=== PATIENT | female | born 1970 | race Caucasian/White ===

== ENCOUNTER 2020-09-01 09:02 | Emergency (ER) | payer BC, OTHER ==
--- OUTSIDE RECORDS SUMMARY | 2020-09-01 09:26 | XMS REPORT ---
:1970 Author Organization [facility] Address [address] [place], [address]. [address] [place] [address] Care Team Providers Name Role Phone Salcedo Unavailable [phone] PROBLEMS Type Condition ICD9-CM [id number] Onset Condition SNOMED Code Notes Code Code Dates Status Problem MICAH (generalized F41.1 Active 40892356 anxiety disorder) Problem Mixed E78.2 Active 483390697 hyperlipidemia Problem Body mass index Z68.34 Active 793932343 [BMI] 34.0-34.9, adult Problem Hypothyroidism, E03.9 Active 633007676 acquired Problem Current moderate F32.1 Active 65833171 episode of major depressive disorder without prior episode Problem Other obesity due E66.09 Active 756840234 to excess calories ALLERGIES No Known Allergies ENCOUNTERS from 1970 to 2020-08-24 Encounter Location Date Provider Diagnosis [place] [address] Fel[place] Jul, Jimenez Salcedo Hypothyro idism, [address], acquired E 03.9 ; [place] [address] hyperlipidemia E78.2 ; MICAH (generalize d anxiety disorde r) F41.1 ; Elevated bloo d pressure readin g without diagnos is of hypertension R0 3.0 ; Other obesity d ue to excess calories E66.09 ; Body mass ind ex [BMI] 34.0-34.9, adul t Z68.34 and Change in b owel habits R19.4 IMMUNIZATIONS Vaccine Route Administration Date Status Afluria single dose Unknown Apr 29, 2020 Administered Adacel (Tdap) Unknown Apr 01, 2019 Administered SOCIAL HISTORY Tobacco Use: Social History Observation Description Date Details (start date - stop date) Never Smoker Sex Assigned At : Social History Observation Description Sex Assigned At Unknown Alcohol Screen Question Answer Notes Did you have a drink containing alcohol in Yes the past year? Points 4 Interpretation Positive How often did you have a drink containing Four or more times a week (4 points) alcohol in the past year? Tobacco Use/Smoking Question Answer Notes Are you a never smoker REASON FOR REFERRAL No Information VITAL SIGNS Height 64.5 in Jul, Weight 205 lbs Jul, Temperature 98 degrees Fahrenheit Jul, BMI 34.64 kg/m2 Jul, Blood pressure systolic 135 mm Hg Jul, Blood pressure diastolic 75 mm Hg Jul, MEDICATIONS Medication SIG (Take, Route, Notes Start Date End Date Status Frequency, Duration) Duloxetine HCl 60 MG 1 capsule Orally Once a Active day for 90 days Levoxyl 125 MCG 1 tablet in the morning Active on an empty stomach Orally Once a day for 90 days Rosuvastatin Calcium 10 MG 1 tablet Orally Once a Active day for 90 days PROCEDURES No Information RESULTS No Results REASON FOR VISIT 3 mth lab f/u Goals Section No Information Health Concerns No Information MEDICAL EQUIPMENT No Information MENTAL STATUS No Information FUNCTIONAL STATUS No Information ASSESSMENTS Encounter Date Diagnosis Assessment Notes Treatment Notes Treatm ent Clinical Notes Jul, Hypothyroidism, REDUCED to 125 mcg. acquired (ICD-10 - Goal TSH 1-3. Side E03.9) effect panel discussed. Hypothyroidism Education: This a condition in which the thyroid gland does not produce enough thyroid hormone for the body. The hormones are important in regulating the body''s use of storing and controlling energy. Symptoms are widely varied and often mimick the body''s normal changes of life. Symptoms may include: fatigue, shortness of breath with exertion, dry skin, hair loss, constipation, depressed feeling, weight gain and temperature intolerance. A blood test is used to determine the thyroid levels. Treatment involves the use of medication in order to balance the TSH and T4 hormone levels. Treatment is indefinite and often lifelong. Your hormone levels will need to be checked periodically to insure that the levels are balanced. Compliance with medication is vital. Overtreated hormone levels can lead to complications. Contact your doctor if you have any abnormal symptoms. Jul, Mixed hyperlipidemia INCREASED 10 mg. (ICD-10 - E78.2) Side effect panel discussed. Hyperlipidemia Education: Hyperlipidemia refers to increased levels of lipids(fats) in the blood, including cholesterol and triglycerides. This can significantly increase your risk of developing coronary artery disease and peripheral artery disease. This can cause chest pain, heart attack, stroke, and fatigue. Treatment is recommended to decrease your risk. Treatment includes: lifestyle modification, low salt/low fat diet, exercise, tobacco cessation, low alcohol intake and sometimes medication. Blood tests (TC,TG, HDL, LDL) are utilized to determine treatment regimens. TC(Total cholesterol) should be below 200. TG(Total Triglycerides) should be below 150. HDL(Good cholesterol) should be above 40. LDL(Bad Cholesterol) should be below 130(if you have one risk factor) or less than 100( if you have more than one risk factor or have DM/CAD/PVD). Compliance with medication and treatment is vital. If you have questions, talk to your doctor. Jul, MICAH (generalized .Refill given. Side anxiety disorder) effect panel (ICD-10 - F41.1) discussed. Education given. , -- Anxiety Education: Anxiety is a feeling of anxiousness or nervousness. Being extremely anxious or worried on most days for 6 months or longer is not normal. This is a type of anxiety disorder. This disorder can make it hard to do everyday tasks. Other types of anxiety include: post traumatic stress disorder, panic disorder, and phobias. Symptoms of anxiety may include: feeling worried or on the edge, trouble sleeping, or forgetting things. Feelings of stomach aches or chest tightness is another common symptom. Medicine, exercise, and other treatments like counseling, talk therapy, yoga, and massages maybe necessary to treat this disorder. Jul, Elevated blood DASH Diet discussed. pressure reading Instructed to without diagnosis of measure BP at home hypertension (ICD-10 and bring in log to - R03.0) f/u appt. Instructions and logs given. Education given. Jul, Other obesity due to excess calories (ICD-10 - E66.09) Jul, Body mass index Actively listened. [BMI] 34.0-34.9, Support given. adult (ICD-10 - Counseling given. Z68.34) Education given. Utilized the 5-A''s approach to increase patient motivation and behavioral change. ASK: Patient expressed desire/readiness to change and permission was obtained to discuss. ASSESS: BMI class discussed. In addition, patient''s barrier to weight loss and identified drivers and complications. ADVISE: Discussed benefits of modest weight loss and long-term strategy as well. Educated on risks and complications of obesity on health. Treatment options were discussed including but not limited to non-surgical (medications, gym, diet/exercise) and surgical options. AGREE: Realistic weight-loss goal discussed. Behavioral goals done. Patient agreed with treatment plan. ASSIST: Provided education and resources. Plan made to address drivers and barriers. Close follow-up arranged. START: Walking daily, reducing soda and increased hydration with water of at least 64 ounces. Weight has been followed. At least 15 minutes were spent counseling. Jul, Change in bowel ., Intermittent habits (ICD-10 - watery and loose. R19.4) No etiology identified. Encouraged to make dietary changes. Take bulking agents. Jul, Other -- Medication reviewed and updated. -- Dietary and Lifestyle modifications addressed regarding diet, exercise and weight managemen t. -- Treatment options, risks and benefits, side effects reviewed in detail. -- Advised on signs/symptoms to monitor and when to call clinic and/or visit the nearest ER. Patient verbalized understanding and agreeable with plan. PLAN OF TREATMENT Medication Medication Name Sig Start Date Stop Date Duloxetine HCl 60 MG 1 capsule Orally Once a day for 90 days Rosuvastatin Calcium 10 MG 1 tablet Orally Once a day for 90 days Levoxyl 125 MCG 1 tablet in the morning on an empty stomach Orally Once a day for 90 days Treatment Notes Assessment Notes Clinical Notes Hypothyroidism, acquired REDUCED to 125 mcg. Goal TSH 1-3. Side effect panel discussed. Hypothyroidism Education: This a condition in which the thyroid gland does not produce enough thyroid hormone for the body. The hormones are important in regulating the body''s use of storing and controlling energy. Symptoms are widely varied and often mimick the body''s normal changes of life. Symptoms may include: fatigue, shortness of breath with exertion, dry skin, hair loss, constipation, depressed feeling, weight gain and temperature intolerance. A blood test is used to determine the thyroid levels. Treatment involves the use of medication in order to balance the TSH and T4 hormone levels. Treatment is indefinite and often lifelong. Your hormone levels will need to be checked periodically to insure that the levels are balanced. Compliance with medication is vital. Overtreated hormone levels can lead to complications. Contact your doctor if you have any abnormal symptoms. Mixed hyperlipidemia INCREASED 10 mg. Side effect panel discussed. Hyperlipidemia Education: Hyperlipidemia refers to increased levels of lipids(fats) in the blood, including cholesterol and triglycerides. This can significantly increase your risk of developing coronary artery disease and peripheral artery disease. This can cause chest pain, heart attack, stroke, and fatigue. Treatment is recommended to decrease your risk. Treatment includes: lifestyle modification, low salt/low fat diet, exercise, tobacco cessation, low alcohol intake and sometimes medication. Blood tests (TC,TG, HDL, LDL) are utilized to determine treatment regimens. TC(Total cholesterol) should be below 200. TG(Total Triglycerides) should be below 150. HDL(Good cholesterol) should be above 40. LDL(Bad Cholesterol) should be below 130(if you have one risk factor) or less than 100( if you have more than one risk factor or have DM/CAD/PVD). Compliance with medication and treatment is vital. If you have questions, talk to your doctor. MICAH (generalized anxiety disorder) .Refill given. Side effec t panel discussed. Education given. , -- Anxiety Education: Anxiety is a feeling of anxiousness or nervousness. Being extremely anxious or worried on most days for 6 months or longer is not normal. This is a type of anxiety disorder. This disorder can make it hard to do everyday tasks. Other types of anxiety include: post traumatic stress disorder, panic disorder, and phobias. Symptoms of anxiety may include: feeling worried or on the edge, trouble sleeping, or forgetting things. Feelings of stomach aches or chest tightness is another common symptom. Medicine, exercise, and other treatments like counseling, talk therapy, yoga, and massages maybe necessary to treat this disorder. Elevated blood pressure reading DASH Diet discussed. Instruc laura to without diagnosis of hypertension measure BP at home and howard ng in log to f/u appt. Instructions and logs given. Education given. Body mass index [BMI] 34.0-34.9, Actively listened. Support given. adult Counseling given. Education given. Utilized the 5-A''s approach to increase patient motivation and behavioral change. ASK: Patient expressed desire/readiness to change and permission was obtained to discuss. ASSESS: BMI class discussed. In addition, patient''s barrier to weight loss and identified drivers and complications. ADVISE: Discussed benefits of modest weight loss and long-term strategy as well. Educated on risks and complications of obesity on health. Treatment options were discussed including but not limited to non-surgical (medications, gym, diet/exercise) and surgical options. AGREE: Realistic weight-loss goal discussed. Behavioral goals done. Patient agreed with treatment plan. ASSIST: Provided education and resources. Plan made to address drivers and barriers. Close follow-up arranged. START: Walking daily, reducing soda and increased hydration with water of at least 64 ounces. Weight has been followed. At least 15 minutes were spent counseling. Change in bowel habits ., Intermittent watery and loose. No etiology identified. Encouraged to make dietary changes. Take bulking agents. Treatment Notes Test Name Order Date Lipid Panel With LDL/HDL Ratio 2020-08-24 Thyroid Panel With TSH 2020-08-24 Comp. Metabolic Panel (14) (CMP) 2020-08-24 Next Appt Details 3 Months TV + Labs 1 week Reason: Insurance Providers Payer Name Payer Payer Insured Name Patient Coverage Covera ge End Address Phone Relationship to Start Date Mendez e Insured [employer] [phone] Guallpa self 2020 and [place] [id number] [facility] [id number]
--- OUTSIDE RECORDS SUMMARY | 2020-09-01 09:26 | XMS REPORT | Continuity of Care Document ---
:[address] [facility] t Address [address] [place] [address] Care Team Providers Name Role Phone Unavailable Unavailable Unavailable Problems This patient has no known problems. Allergies, Adverse Reactions, Alerts This patient has no known allergies or adverse reactions. Medications This patient has no known medications. Procedures This patient has no known procedures. Encounters Start End Encounter Admission Attending Care Care Encounter Source Date/Time Date/Time Type Type Clinicians Facility Department ID 2020-08-24 2020-08-[address] [facility] [id number] [facility] 00:00:00 00:00:00 [facility] 2020-05-25 2020-05-[address] [facility] [id number] [facility] 2020-05-04 2020-05-[address] [facility] [id number] [facility] Results This patient has no known results.
[2020-09-01 10:28] LABS: Absolute Lymphocytes (CBC) 2.2 K/uL (0.7-4.9); Basophils % 0.3 % (0-1.3); Hematocrit 38.6 % (36.0-45.0); Lymphocytes % 23.8 % (15.3-44.8); RBC Red Blood Cell Count 4.27 M/uL (3.86-4.86)
[2020-09-01 10:36] LABS: Protime INR 0.95
[2020-09-01 10:48] LABS: ALT/SGPT 34 U/L (12-78); AST/SGOT 16 U/L (15-37); Albumin 3.6 g/dL (3.4-5.0); Alkaline Phosphatase 107 U/L (45-117); BUN Blood Urea Nitrogen 7 mg/dL (7-18); Bicarbonate 25 mmol/L (21-32); Bilirubin Direct < 0.1 mg/dL (0-0.2); Bilirubin Total 0.4 mg/dL (0.2-1.0); Glucose Level 98 mg/dL (74-106); Magnesium 2.1 mg/dL (1.8-2.4); NT PRO-BNP 16 pg/mL (<125); Potassium 4.4 mmol/L (3.5-5.1); Protein, Total 8.1 g/dL (6.4-8.2); Sodium Level 140 mmol/L (136-145); Troponin (Emerg Dept Use Only) < 0.02 ng/mL (0.0-0.045)
--- NOTE | 2020-09-01 12:22 | RAD REPORT ---
EXAM DESCRIPTION: Ronni Single View09/01/2020 11:26 am CLINICAL HISTORY: Chest pain COMPARISON: 2014 FINDINGS: The lungs appear clear of acute infiltrate. The heart is normal size IMPRESSION: No acute abnormalities displayed
--- NOTE | 2020-09-01 12:27 | RAD REPORT ---
EXAM DESCRIPTION: CT - Chest Angio - 09/01/2020 12:07 pm CLINICAL HISTORY: Chest pain COMPARISON: None. TECHNIQUE: Dynamically enhanced axial 3 mm thick images of the chest were obtained during administra tion of <100> mL Isovue 370 IV contrast. Coronal and oblique reconstruction images were generated and reviewed. Exam utilizes a protocol for optimal evaluation of pulmonary arterial tree. Maximum intensity projections 3D imaging was utilized All CT scans are performed using dose optimization technique as appropriate and may include automated exposure control or mA/KV adjustment according to patient size. FINDINGS: A pulmonary embolus is not seen. A thoracic aortic aneurysm is not noted. A pleural effusion is not seen. A pericardial effusion is not seen. A lung consolidation is not present. Calcified lung granulomas are present Low density areas are present within predominately the upper anterior spleen extending to the periphe ry IMPRESSION: Negative for a pulmonary embolism. Low density areas within predominantly the upper anterior spleen extending to the periphery. The eval uation of the spleen is limited as only the arterial phase is present on this exam. This could be nor mal differential perfusion to the spleen. Another consideration is that it represents an infarct. If the patient has clinical symptoms suggestive of a splenic infarction then either an MRI or CT abdomen in which the venous phase is performed would be the recommendation
--- NOTE | 2020-09-01 12:45 | EDPHYS ---
Physician Documentation [facility] Name: Ana María Guallpa Age: 50 yrs Sex: Female : 1970 Arrival Date: 09/01/2020 Time: 09:06 Bed 6 Private MD: [facility] ED Physician Ferdinand Sauer HPI: 09/01 10:00 This 50 yrs old Female presents to ER via Ambulatory with complaints of High kdr Blood Pressure, Vomiting. 10:00 The patient has elevated blood pressure and discovered this School office. Onset: The kdr symptoms/episode began/occurred suddenly, just prior to arrival. Modifying factors: The symptoms are aggravated by nothing, The symptoms are alleviated by Nothing. Associated signs and symptoms: Pertinent positives: nausea, vomiting, Vomited once after getting diaphoretic. Severity of symptoms: At its worst the blood pressure was moderate, in the emergency department the blood pressure is improved, mildly. The patient has not experienced similar symptoms in the past. The patient has not recently seen a physician. Historical: - Allergies: 09:10 No Known Allergies; sv - PMHx: 09:10 Hypothyroidism; High Cholesterol; sv - PSHx: 09:10 None; sv - Immunization history:: Adult Immunizations up to date. - Social history:: Smoking status: Patient denies any tobacco usage or history of. ROS: 10:00 Constitutional: Negative for fever, chills, and weight loss, Eyes: Negative for injury, kdr pain, redness, and discharge, ENT: Negative for injury, pain, and discharge, Neck: Negative for injury, pain, and swelling, Respiratory: Negative for shortness of breath, cough, wheezing, and pleuritic chest pain, Back: Negative for injury and pain, : Negative for injury, bleeding, discharge, and swelling, MS/Extremity: Negative for injury and deformity, Skin: Negative for injury, rash, and discoloration, Neuro: Negative for headache, weakness, numbness, tingling, and seizure activity. Psych: Negative for depression, anxiety, suicide ideation, homicidal ideation, and hallucinations, Allergy/Immunology: Negative for hives, rash, and allergies, Endocrine: Negative for neck swelling, polydipsia, polyuria, polyphagia, and marked weight changes, Hematologic/Lymphatic: Negative for swollen nodes, abnormal bleeding, and unusual bruising. 10:00 Cardiovascular: Positive for chest pain, of the mid-sternal area, Radiates to her back at the bra line. 10:00 Abdomen/GI: Positive for nausea and vomiting, Once. Exam: 10:14 Constitutional: This is a well developed, well nourished patient who is awake, alert, kdr and in no acute distress. Head/Face: Normocephalic, atraumatic. Eyes: Pupils equal round and reactive to light, extra-ocular motions intact. Lids and lashes normal. Conjunctiva and sclera are non-icteric and not injected. Cornea within normal limits. Periorbital areas with no swelling, redness, or edema. Neck: Trachea midline, no thyromegaly or masses palpated, and no cervical lymphadenopathy. Supple, full range of motion without nuchal rigidity, or vertebral point tenderness. No Meningismus. Chest/axilla: Normal chest wall appearance and motion. Nontender with no deformity. No lesions are appreciated. Cardiovascular: Regular rate and rhythm with a normal S1 and S2. No gallops, murmurs, or rubs. Normal PMI, no JVD. No pulse deficits. Respiratory: Lungs have equal breath sounds bilaterally, clear to auscultation and percussion. No rales, rhonchi or wheezes noted. No increased work of breathing, no retractions or nasal flaring. Abdomen/GI: Soft, non-tender, with normal bowel sounds. No distension or tympany. No guarding or rebound. No evidence of tenderness throughout. Back: No spinal tenderness. No costovertebral tenderness. Full range of motion. Skin: Warm, dry with normal turgor. Normal color with no rashes, no lesions, and no evidence of cellulitis. MS/ Extremity: Pulses equal, no cyanosis. Neurovascular intact. Full, normal range of motion. Neuro: Awake and alert, GCS 15, oriented to person, place, time, and situation. Cranial nerves II-XII grossly intact. Motor strength 5/5 in all extremities. Sensory grossly intact. Cerebellar exam normal. Normal gait. Psych: Awake, alert, with orientation to person, place and time. Behavior, mood, and affect are within normal limits. 10:14 Back: pain, that is very mild, of the thoracic area. Vital Signs: 09:10 BP 157 / 91; Pulse 96; Resp 18; Temp 97.7; Pulse Ox 98% ; Weight 94.8 kg; Height 5 ft. sv 5 in. (165.10 cm); 11:08 BP 136 / 85; Pulse 92; Resp 16; Pulse Ox 98% on R/A; Pain 0/10; ss 12:28 BP 147 / 96; Pulse 94; Pulse Ox 98% on R/A; ss 09:10 Body Mass Index 34.78 (94.80 kg, 165.10 cm) sv MDM: 12:45 Patient medically screened. kdr 17:11 Data reviewed: vital signs, nurses notes, lab test result(s), radiologic studies. kdr Counseling: I had a detailed discussion with the patient and/or guardian regarding: the historical points, exam findings, and any diagnostic results supporting the discharge/admit diagnosis, lab results, radiology results, the need for outpatient follow up. 09/01 09:59 Order name: Basic Metabolic Panel; Complete Time: 11:50 kdr 09/01 09:59 Order name: CBC with Diff; Complete Time: 11:50 kdr 09/01 09:59 Order name: LFT's; Complete Time: 11:50 kdr 09/01 09:59 Order name: Magnesium; Complete Time: 11:50 kdr 09/01 09:59 Order name: NT PRO-BNP; Complete Time: 11:50 kdr 09/01 09:59 Order name: PT-INR; Complete Time: 11:50 kdr 09/01 09:59 Order name: Troponin (emerg Dept Use Only); Complete Time: 11:50 kdr 09/01 09:59 Order name: XRAY Chest (1 view); Complete Time: 12:34 kdr 09/01 09:59 Order name: EKG; Complete Time: 10:00 kdr 09/01 09:59 Order name: Cardiac monitoring; Complete Time: 10:31 kdr 09/01 09:59 Order name: EKG - Nurse/Tech; Complete Time: 10:31 kdr 09/01 09:59 Order name: IV Saline Lock; Complete Time: 10:31 kdr 09/01 09:59 Order name: Labs collected and sent; Complete Time: 10:32 kdr 09/01 09:59 Order name: CT Chest Angio; Complete Time: 12:34 kdr 09/01 09:59 Order name: O2 Per Protocol; Complete Time: 10:32 kdr 09/01 09:59 Order name: O2 Sat Monitoring; Complete Time: 10:32 kdr Administered Medications: No medications were administered Disposition: 09/01/20 12:45 Discharged to Home. Impression: Chest pain, unspecified, Vomiting. - Condition is Stable. - Discharge Instructions: Nausea and Vomiting, Adult, [id number], Nonspecific Chest Pain, [id number]. - Prescriptions for Zofran 4 mg Oral Tablet - take 1 tablet by ORAL route every 4-6 hours As needed; 12 tablet. - Medication Reconciliation Form, Thank You Letter form. - Follow up: Jimenez Salcedo DO; When: 2 - 3 days; Reason: If symptoms return, Further diagnostic work-up, Recheck today's complaints, Continuance of care, Re-evaluation by your physician. - Problem is new. - Symptoms are resolved. Signatures: Dispatcher [employer] EDMS Ally Chavez RN RN Ferdinand Sauer MD MD kdr Smirch, Shelby, RN RN ss Corrections: (The following items were deleted from the chart) 13:15 12:45 09/01/2020 12:45 Discharged to Home. Impression: Chest pain, unspecified; ss Vomiting. Condition is Stable. Forms are Medication Reconciliation Form, Thank You Letter, Antibiotic Education, Prescription Opioid Use. Follow up: Jimenez Salcedo; When: 2 - 3 days; Reason: If symptoms return, Further diagnostic work-up, Recheck today's complaints, Continuance of care, Re-evaluation by your physician. Problem is new. Symptoms are resolved. kdr
--- NOTE | 2020-09-01 12:45 | ER ---
Nurse's Notes [facility] Name: Ana María Guallpa Age: 50 yrs Sex: Female : 1970 Arrival Date: 09/01/2020 Time: 09:06 Bed 6 Private MD: Jimenez Salcedo Diagnosis: Chest pain, unspecified;Vomiting Presentation: 09/01 09:09 Chief complaint: Patient states: "I was at work and I was super hungry and then started sv having pain in the upper part of my chest and through my back. I went to the nurse and they said my pressure was 178/98.". Coronavirus screen: Client denies travel out of the [place] in the last 14 days. At this time, the client does not indicate any symptoms associated with coronavirus-19. Risk Assessment: Do you want to hurt yourself or someone else? Patient reports no desire to harm self or others. Onset of symptoms was September 01, 2020. 09:09 Method Of Arrival: Ambulatory sv 09:09 Acuity: BHARAT 3 sv 09:10 Ebola Screen: No symptoms or risks identified at this time. Initial Sepsis Screen: Does sv the patient meet any 2 criteria? HR > 90 bpm. No. Patient's initial sepsis screen is negative. Does the patient have a suspected source of infection? No. Patient's initial sepsis screen is negative. Triage Assessment: 09:09 General: Appears in no apparent distress. comfortable, Behavior is calm, cooperative, sv appropriate for age. Neuro: Level of Consciousness is awake, alert, obeys commands, Oriented to person, place, time, situation, Gait is steady. Respiratory: Respiratory effort is even, unlabored. Historical: - Allergies: 09:10 No Known Allergies; sv - PMHx: 09:10 Hypothyroidism; High Cholesterol; sv - PSHx: 09:10 None; sv - Immunization history:: Adult Immunizations up to date. - Social history:: Smoking status: Patient denies any tobacco usage or history of. Screenin:46 Abuse screen: Denies threats or abuse. Denies injuries from another. Nutritional hb screening: No deficits noted. Tuberculosis screening: No symptoms or risk factors identified. Fall Risk None identified. Assessment: 09:45 General: Appears in no apparent distress. comfortable, Behavior is calm, cooperative, ss Denies fever, feeling ill, fatigue, chills. Pain: Complains of pain in chest Pain radiates to back Pain currently is 0 out of 10 on a pain scale. at worst was 5 out of 10 on a pain scale. Quality of pain is described as pressure, Pain began suddenly, 1 hour ago. lasting only 45 minutes. Neuro: Level of Consciousness is awake, alert, obeys commands, Oriented to person, place, time, situation. Cardiovascular: Denies lightheadedness, Capillary refill < 3 seconds is brisk in bilateral fingers Patient's skin is warm and dry. Respiratory: Airway is patent Respiratory effort is even, unlabored, Respiratory pattern is regular, symmetrical, Denies cough, shortness of breath pain with respiration, pain with cough, pain with movement. GI: No signs and/or symptoms were reported involving the gastrointestinal system. Patient currently denies abdominal pain, diarrhea, nausea, vomiting. : No signs and/or symptoms were reported regarding the genitourinary system. EENT: Nares are clear Oral mucosa is moist. Derm: Skin is intact, is healthy with good turgor, Skin is dry, Skin is pink, warm \\T\\ dry. normal. Musculoskeletal: Circulation, motion, and sensation intact. Range of motion: intact in all extremities, Swelling absent. 10:45 Reassessment: Patient appears in no apparent distress at this time. Patient and/or ss family updated on plan of care and expected duration. Pain level reassessed. Patient is alert, oriented x 3, equal unlabored respirations, skin warm/dry/pink. 11:45 Reassessment: Patient appears in no apparent distress at this time. No changes from ss previously documented assessment. 12:45 Reassessment: No changes from previously documented assessment. Patient is alert, ss oriented x 3, equal unlabored respirations, skin warm/dry/pink. Vital Signs: 09:10 BP 157 / 91; Pulse 96; Resp 18; Temp 97.7; Pulse Ox 98% ; Weight 94.8 kg; Height 5 ft. sv 5 in. (165.10 cm); 11:08 BP 136 / 85; Pulse 92; Resp 16; Pulse Ox 98% on R/A; Pain 0/10; ss 12:28 BP 147 / 96; Pulse 94; Pulse Ox 98% on R/A; ss 09:10 Body Mass Index 34.78 (94.80 kg, 165.10 cm) sv ED Course: 09:06 Patient arrived in ED. mr 09:07 Jimenez Salcedo DO is Private Physician. mr 09:10 Triage completed. sv 09:10 Arm band placed on. sv 09:34 Ferdinand Sauer MD is Attending Physician. kdr 10:30 Inserted saline lock: 20 gauge in right antecubital area, using aseptic technique. ss Blood collected. 10:31 Ondina Boyer RN is Primary Nurse. ss 10:46 Patient has correct armband on for positive identification. Bed in low position. Call hb light in reach. Side rails up X 1. 11:23 XRAY Chest (1 view) In Process Unspecified. EDMS 12:07 CT Chest Angio In Process Unspecified. EDMS 12:43 Jimenez Salcedo DO is Referral Physician. kdr 13:14 No provider procedures requiring assistance completed. IV discontinued, intact, ss bleeding controlled, No redness/swelling at site. Pressure dressing applied. Administered Medications: No medications were administered Outcome: 12:45 Discharge ordered by . kdr 13:15 Patient left the ED. ss 13:15 Discharged to home ambulatory. ss 13:15 Condition: good 13:15 Discharge instructions given to patient, Instructed on discharge instructions, follow up and referral plans. medication usage, Demonstrated understanding of instructions, follow-up care, medications, Prescriptions given X 1. Signatures: Dispatcher [employer] Ally Hernandez RN RN Ferdinand Sauer MD MD [facility] Fouzia Murray mr Ondina Boyer RN RN Janell Bundy RN RN hb Corrections: (The following items were deleted from the chart) 09:12 09:10 Pulse 96bpm; Resp 18bpm; Pulse Ox 98%; Temp 97.7F; 94.8 kg; Height 5 ft. 5 in.; sv BMI: 34.7; sv
[2020-09-01 13:31] VITALS: TEMP 97.7; O2SAT 98
[2020-09-01 13:33] VITALS: BP 147/96
== END 2020-09-01 13:15 | disposition home or self-care (01) ==
LOC: ER 09:02
DX: R07.9 Chest pain, unspecified (principal)
CPT/HCPCS: 93005; 85025; 80048; 36415; 83735; 85610; 80076; 84484; 83880; 71275; 71045; 99284; Q9967

== ENCOUNTER 2021-05-11 11:11 | Day surgery (SDC) | payer BC ==
[2021-05-08 16:04] LABS: Absolute Lymphocytes (CBC) 3.1 K/uL (0.7-4.9); Basophils % 0.3 % (0-1.3); Hematocrit 39.1 % (36.0-45.0); Lymphocytes % 28.8 % (15.3-44.8); MPV 7.5 fL (7.6-11.3); RBC Red Blood Cell Count 4.31 M/uL (3.86-4.86)
[2021-05-08 16:19] LABS: Potassium 3.9 mmol/L (3.5-5.1)
[2021-05-11 11:35] LABS: Specific Gravity 1.015 (1.005-1.030)
[2021-05-11] MEDS ORDERED: Ringers Lactate 1,000 ML IV ONE ×2 (11:51→15:02)
[2021-05-11] MEDS ORDERED: CEFAZOLIN 2 GM IN 0.9% NACL 2 GM/100 ML BAG ONE (11:51)
[2021-05-11] MEDS ORDERED: ONDANSETRON 4 MG/2 ML VIAL ONE (12:11)
[2021-05-11] MEDS ORDERED: propofoL 200 MG/20 ML VIAL IV ONE (12:11)
[2021-05-11] MEDS ORDERED: FENTANYL CITR 100 MCG/2 ML ONE (12:11)
[2021-05-11] MEDS ORDERED: dexAMETHasone 10 MG/ML VIAL ONE (12:11)
[2021-05-11] MEDS ORDERED: MIDAZOLAM HCL 2 MG/2 ML INJ ONE (12:11)
[2021-05-11] MEDS ORDERED: LIDOCAINE 2% MPF 5 ML VIAL ONE (12:11)
[2021-05-11] MEDS ORDERED: ROCURONIUM 50 MG/5 ML VIAL IV ONE (13:20)
[2021-05-11] MEDS ORDERED: EPHEDRINE SULF 50 MG/ML VIAL ONE (13:48)
--- NOTE | 2021-05-11 13:54 | P.OP ---
Preoperative diagnosis: Periumbilical Hernia Postoperative diagnosis: Periumbilical Hernia Primary procedure: Open Umbilical Hernia Repair with mesh Anesthesia: GETA + Local Estimated blood loss: <5cc Specimen: hernia contents - adipose Findings: ~ 1.5cm hernia defect @ umbilicus Complications: None Implants: 4.3cm Bard Ventralex ST mesh round with strap Transferred to: Recovery Room Condition: Good
[2021-05-11] MEDS ORDERED: NEOSTIGMINE 1 MG/ML -5 ML ONE (14:13)
[2021-05-11] MEDS ORDERED: KETOROLAC 30 MG/ML INJ ONE (14:13)
[2021-05-11] MEDS ORDERED: GLYCOPYRROLATE 0.2 MG/ML SYR ONE ×2 (14:13→14:14)
[2021-05-11] MEDS: MORPHINE 4 MG/ML SYR ONE ×2 (14:22→14:28)
[2021-05-11 14:31] VITALS: O2SAT 95
[2021-05-11] MEDS ORDERED: BUPIVACAINE 0.25% PF 30 ML VIAL ONE (14:44)
[2021-05-11 14:57] VITALS: BP 108/57; TEMP 97.5
--- NOTE | 2021-05-11 15:27 | OP ---
Date of Procedure: 05/11/2021 Surgeon: Laura Lee MD, Preoperative Diagnosis: Periumbilical hernia. Postoperative Diagnosis: Periumbilical hernia. Procedure: Open umbilical hernia repair with mesh. Anesthesia: General endotracheal plus local. Estimated Blood Loss: Less than 5 mL. Specimens: Hernia contents and adipose tissue. Findings: A 1.5 cm hernia defect at the umbilicus. Complications: None. Implants: 4.[address] mesh, which was round with strap. Disposition: The patient was transferred to recovery room in good condition. Procedure In Detail: After informed consent was obtained, the patient was brought to the operating r oom, prepped and draped in the usual sterile fashion after adequate anesthesia was achieved. I made a supraumbilical linear incision through midline tissues down through subcutaneous tissues. I dissec laura down to subcutaneous tissues to expose the hernia sac, which was found to be in the periumbilical tissue just superior to the umbilicus. The defect was opened at this point, found to have a quite s mall defect approximately 1 to 1.5 cm defect. The hernia contents were include only adipose tissue. This was removed using electrocautery. I then performed finger sweep to allow for a preperitoneal p ositioning of the mesh. I then placed a 4.[address] mesh 4.3 cm round mesh with strap system into the preperitoneal space in a parachute fashion using 0 Vicryl sutures and secured the me sh to the anterior abdominal wall in the preperitoneal position. At this point, I then closed the he rnia defect over the top by closing the fascial defect using same said 0 PDS suture in a running fash ion with good apposition of tissues. The area was copiously irrigated and electrocautery used to ach ieve hemostasis at this point. Deep dermal planes were then closed using interrupted 3-0 Vicryl sutu re and skin was closed with 4-0 Monocryl in running fashion. Dermabond placed over top. The patient tolerated the procedure well without evidence of complication and transferred to PACU in good condit ion. All counts were correct at the end of the case. TK/MODL Voice ID: [id number] Report ID: [id number]
[2021-05-11] MEDS ORDERED: HYDROCODONE/APAP 10/325 TAB ONE (15:42)
== END 2021-05-11 15:44 | disposition home or self-care (01) ==
LOC: OR 11:11
PROVIDERS: ATTEND Surgery
PROC: 0WUF0JZ Supplement Abdominal Wall with Synthetic Substitute, Open Approach (ICD-10-PCS; principal; 2021-05-11 13:15)
DX: K42.9 Umbilical hernia without obstruction or gangrene (principal); U07.1 COVID-19
CPT/HCPCS: 85025; 80048; 36415; 81025; 88302; 49585; J2704; J2250; J3010; J1100; J2710; J0690; J7120 ×2; J2405